=== PATIENT | male | born 1960 | race Caucasian/White ===

== ENCOUNTER 2016-11-07 06:02 | Observation (INO) | payer MEDICARE, OTHER ==
--- NOTE | ~2016-11-07 | DS ---
Discharge Summary [facility] [address] [place]. [address] NAME: DRE FRIED SELVIN : 56 STATUS : DIS Sayra PAT#: [id number] AGE: 56 ADM/REG DATE : 11/07/16 MR#: [id number] REPORT SERV DATE: 11/09/16 DICTATED BY: MINERVA DE ANDA DATE: 11/08/16 REPORT STATUS : Draft TRANSCRIBED BY: MODL DATE: 11/08/16 ADMISSION DATE: 11/07/2016 DISCHARGE DATE: 11/08/2016 REASON FOR ADMISSION: Mild volume overload. HISTORY OF PRESENT ILLNESS: Please refer to my history and physical dated 11/07/2016 for complete details regarding the patient's admission. In brief, the patient was admitted to the Hospitalist Service for volume overload. The patient had an uncomplicated hospital course. He presented with some chest tightness and shortness of breath. He was found to have some volume overload on chest x-ray, and he was given a dose of 60 mg of IV Lasix in the ER with improvement in symptomatology. Hospitalist was asked to admit for further evaluation and management. The patient states that he had not been on a diuretic pill since he was discharged in September from the Cardiology Service. He does not know why, but I suspect it was because of his rising creatinine. He says he typically takes Lasix 40 mg once a day at home, but has been off it for the past month. During admission, the patient was started on aggressive Lasix diuresis. On the following day, he was breathing better and was requesting to go home. His kidney function had improved slightly compared to admission. Of note, the patient had a MARY cardioversion on 10/06/[address] Rivera, which showed a preserved EF. No significant aortic regurgitation. There is some mild mitral regurgitation, trace pulmonic regurgitation, and trace to mild tricuspid regurgitation. His volume overload was likely secondary because he was not on Lasix and CKD stage 3b/4. He is now compensated and is stable for discharge. DISCHARGE DIAGNOSES: Mild volume overload likely secondary to chronic kidney disease, now resolved; history of atrial fibrillation with rapid ventricular response, status post MARY cardioversion, 09/2016, by Dr. Rivera; chronic kidney disease stage 3b/4; clinical chronic obstructive pulmonary disease, ongoing tobacco abuse; coronary artery disease, status post PCI; myocardial infarctions; atypical angina, now resolved. PROCEDURES: Include chest x-ray. DISCHARGE MEDICATIONS: Include Eliquis 5 mg twice a day, aspirin 81 mg daily, Coreg 25 mg twice a day, hydralazine 50 mg three times a day, Dulera 200/5 mcg two puffs twice a day, nitroglycerin p.r.n., Respimat p.r.n., Lasix 40 mg daily. FOLLOWUP: The patient will follow up as outpatient with medical instrument technician and his PCP. ERIC/FIONA Minerva De Anda MD / [id number] Discharge Summary [address] [address] NAME: DRE FRIED SELVIN : 56 STATUS : DIS Sayra PAT#: [id number] AGE: 56 ADM/REG DATE : 11/07/16 MR#: [id number] REPORT SERV DATE: 11/09/16 DICTATED BY: MINERVA DE ANDA DATE: 11/08/16 REPORT STATUS : Draft TRANSCRIBED BY: FIONA DATE: 11/08/16 CC: MD ISIAH Alcantar MD
--- NOTE | ~2016-11-07 | HP ---
History And Physical [place] [id number] [place] [place]. [address] NAME: JOHN FRIED SELVIN : 56 STATUS : ADM Sayra PAT#: [id number] AGE: 56 ADM/REG DATE : 11/07/16 MR#: [id number] REPORT SERV DATE: 11/07/16 DICTATED BY: MINERVA DE ANDA DATE: 11/07/16 REPORT STATUS : Draft TRANSCRIBED BY: MODL DATE: 11/07/16 DATE OF ADMISSION: 11/07/2016 REASON FOR ADMISSION: Mild volume overload secondary to CKD. CHIEF COMPLAINT: "I have been having a chest pain and some shortness of breath." HISTORY OF PRESENT ILLNESS: A 56-year-old white male with a known history of CAD, status post drug-eluting stent to proximal RCA, PTCA to mid RCA. The patient was recently hospitalized on 10/05 for atrial fibrillation with RVR, admitted to the observation unit and had a successful MARY cardioversion by Dr. Rivera. Nephrology had been consulted as his creatinine slightly went up. He thinks he was told to not be taking any diuretics and has not been on diuretics since he was hospitalized. He says that he had chest pain a couple of days ago that could not wake up his sister to take him to the hospital, but it had resolved on its own. He said that he had some chest pain last night, describes it as retrosternal in location, mildly radiating, dull with some shortness of breath periodically. He took a nitroglycerin pill and then had resolved. He has been having some difficulty urinating. In the ER, he was given a dose of 40 mg of IV Lasix and is feeling much better. He is saturating 95% on room air. He is not currently having any chest pain. He has a slightly elevated BNP and a chest x-ray findings consistent with some mild venous congestion. Hospice was asked to admit for further evaluation and management. He does not admit to any orthopnea. Chest pain was a 6/10. He follows up with Dr. Mercado. He is not sure if he sees a water and fire technician or not. REVIEW OF SYSTEMS: As per HPI. Otherwise, ten-point systems were reviewed and are negative. PAST MEDICAL HISTORY: Coronary artery disease, PVD, hypertension, dyslipidemia, history of atrial fibrillation with RVR status post MARY cardioversion, ongoing tobacco abuse, COPD, CKD caused by cholesterol embolization status post catheterization, hyperlipidemia, history of cardiomyopathy, but now with a preserved EF. PAST SURGICAL HISTORY: Sinus surgery, right forearm embolectomy, left transmetatarsal amputation, and left common iliac stent. SOCIAL HISTORY: He lives with his sister. He continues to smoke. He has cut back from two packs to about one-pack per day. He cut back down in January, but he has been smoking for over 45 years. Denies any alcohol or illicit drug use. He is on disability. FAMILY HISTORY: Positive for coronary artery disease. ALLERGIES: CODEINE CAUSES ITCHING ALL OVER. MEDICATIONS: Include Eliquis 5 mg twice a day, aspirin 81 mg daily, Coreg 25 mg twice a day, hydralazine 50 mg three times a day, Combivent p.r.n., and nitroglycerin p.r.n. chest pain. History And Physical [address] [address] NAME: OJHN FRIED SELVIN : 56 STATUS : ADM Sayra PAT#: [id number] AGE: 56 ADM/REG DATE : 11/07/16 MR#: [id number] REPORT SERV DATE: 11/07/16 DICTATED BY: MINERVA DE ANDA DATE: 11/07/16 REPORT STATUS : Draft TRANSCRIBED BY: FIONA DATE: 11/07/16 PHYSICAL EXAMINATION: VITAL SIGNS: Blood pressure is 143/99, saturating 95% on room air. He is afebrile. Pulse is 94. GENERAL: He is in no acute distress. Alert and oriented x3. Very pleasant. HEENT: Normocephalic and atraumatic head. Extraocular muscles are intact. Oropharynx is clear. NECK: Supple. No JVD. CARDIAC: Regular rhythm. No murmurs, rubs, or gallops. There are some periodic ectopic beats. PULMONARY: No wheezing. No rhonchi. There are bibasilar crackles. ABDOMEN: Soft, nontender, nondistended. Positive bowel sounds. EXTREMITIES: Show no clubbing, cyanosis, or edema. NEUROLOGIC: No focal deficits. PSYCHIATRIC: The patient is cooperative. Mood is appropriate. SKIN: Warm and dry. LABORATORY DATA: Labs show a BUN of 44, creatinine 2.44, which is around his baseline. Troponin is 0.05. Hemoglobin 9.7, platelet of 367, and BNP is 401. UA after Goldstein catheter placed is unremarkable. Chest x-ray shows some mild venous congestion interpreted by myself. No significant change from the previous x-ray. IMPRESSION: 1. Mild volume overload secondary to chronic kidney disease, now resolving after one dose of Lasix. 2. History of atrial fibrillation with rapid ventricular response status post transesophageal echocardiography cardioversion by Dr. John Rivera in September 2016. 3. Chronic kidney disease, stage 3B/4. 4. Chronic obstructive pulmonary disease.. 5. Ongoing tobacco abuse. 6. Coronary artery disease status post percutaneous coronary intervention and myocardial infarction. 7. Atypical angina. The plan is to continue Lasix diuresis with 40 mg IV q.12 hours. We will monitor his creatinine pretty closely, resume his home medicines, check one more set of troponin. He is on possibility for discharge tomorrow if his symptoms continue to improve and if his kidney functions are at baseline. ERIC/FIONA Minerva De Anda MD / [id number] History And Physical [address] [address] NAME: JOHN FRIED SELVIN : 56 STATUS : ADM Sayra PAT#: [id number] AGE: 56 ADM/REG DATE : 11/07/16 MR#: [id number] REPORT SERV DATE: 11/07/16 DICTATED BY: MINERVA DE ANDA DATE: 11/07/16 REPORT STATUS : Draft TRANSCRIBED BY: MODLisandro DATE: 11/07/16 CC: MD MERE Alcantar PAUL E John Carter Hemphill, MD
[2016-11-07 03:34] LABS: BASOPHILS 0.5 %; BASOPHILS ABSOLUTE 0.05 10/3/uL (0.0-0.16); EOSINOPHILS ABSOLUTE 0.29 10/3/uL (0.0-0.53); HEMATOCRIT 29.8 % (40.0-51.0); HEMOGLOBIN 9.7 g/dL (13.6-17.8); IMMATURE GRANULOCYTES 0.5 %; IMMATURE GRANULOCYTES ABSOLUTE 0.05 10/3/uL (0.0-0.11); LYMPHOCYTES 18.8 %; LYMPHOCYTES ABSOLUTE 1.79 10/3/uL (0.67-4.30); MEAN CORPUS HGB CONC 32.6 g/dL (32.0-36.0); MEAN CORPUSCULAR HEMOGLOB 24.2 pg (26.0-34.0); MEAN PLATELET VOLUME 8.2 fL (9.2-13.0); MONOCYTES 5.7 %; MONOCYTES ABSOLUTE 0.54 10/3/uL (0.21-1.20); NEUTROPHILS 71.5 %; NEUTROPHILS ABSOLUTE 6.82 10/3/uL (2.02-8.40); PLATELET COUNT 367 10/3/uL (150-400); RBC DISTRIBUTION WIDTH 14.4 % (12.0-16.0); RED CELL COUNT 4.01 10/6/uL (4.7-6.1); WHITE BLOOD CELLS 9.5 10/3/uL (4.5-10.5)
[2016-11-07 03:37] LABS: MANUAL DIFF NO %; MEAN CORPUSCULAR VOLUME 74.3 fL (80-100)
[2016-11-07 03:45] LABS: INTERNATIONAL NORMAL RATI 1.1 UNITS (-); PARTIAL THROMBO TIME 30.8 SEC (22.5-37.2); PROTIME (NOT ORD) 14.2 SEC (12.0-14.5)
[2016-11-07 03:50] LABS: CALCIUM, SERUM 8.7 MG/DL (8.5-10.4); CHLORIDE, SERUM 98 MMOL/L (96-112); CO2 (CARBON DIOXIDE) 27 MMOL/L (24-34); CREATININE 2.44 MG/DL (0.70-1.30); GFR AFRICAN AMERICAN 33 ML/MIN (>=60); GFR NON AFRICAN AMERICAN 28 ML/MIN (>=60); GLUCOSE, SERUM 106 MG/DL (60-99); POTASSIUM, SERUM 3.7 MMOL/L (3.5-5.3); SODIUM, SERUM 138 MMOL/L (135-148)
[2016-11-07 03:51] LABS: BUN (BLOOD UREA NITROGEN) 44 MG/DL (6-23); CHEST PAIN PROFILE TAT 0 Hrs 21 Mins; TROPONIN I 0.05 NG/ML (<0.05)
[2016-11-07 04:00] LABS: PLATELET ESTIMATE ADQ (ADEQUATE)
[2016-11-07 04:03] LABS: HYPOCHROMIA 1+ (3-10/OIF) (0-2/OIF); POLYCHROMASIA 1+ (2-5/OIF) (0-1/OIF)
[2016-11-07 05:55] LABS: ASCORBIC ACID (UR NOT ORDER) NEG (NEG); BILIRUBIN, URINE NEGATIVE (NEG); ER URINALYSIS TAT 0 Hrs 00 Mins; KETONE, URINE NEGATIVE (NEG); LEUKOCYTE ESTERASE(NOT OR NEG (NEG); NITRITE (URINE) NEG (NEG); WBC (NOT ORDERED) (RFLEX) 1 (0-5)
[~2016-11-07 06:02] MED LIST: *UNABLE1; ACET500CAP PO; ADVAIR250 INH; ANADS PO; APRES10B PO; APRES50 PO; ASA5GR PO; ASAB PO; ASABAYER PO; C5 PO; CARDCD180 PO; CHANTIX1 PO; COMBIVENT INH; COMBIVENT RESPIM4 GM INH; COREG; COREG12 PO; COREG25 PO; COREG6 PO; DILTIAZEM; EFFIENT10 PO; ELIQUIS; ELIQUIS 5 MG TAB5 MG PO; HALF81 PO; L20 PO; L40 PO; LIPITOR; LIPITOR20 PO; LIPITOR40 PO; LOP50 PO; MOBIC15 MG PO; NEUR300 PO; NITROSTAT0.4 MG SL; NORV10 PO; PCET PO; PERCOCET1 TA4 PO; PLAVIX; PLAVIX PO; PR12.5 PO; PR25 PO; PRILO PO; PRILOSEC OTC20 MG PO; PRILOSEC40 MG PO; PRIN10 PO; PRIN20 PO; PROTONIX PO; PT DOES NOT RECALL; SYMBICORT 160/41 INH INH; ZANTAC150 MG PO; ZESTRIL20 MG PO; [UNRECOGNIZED DRUG - REMARK] IM
[2016-11-08 02:48] LABS: CALCIUM, SERUM 8.7 MG/DL (8.5-10.4); CHLORIDE, SERUM 96 MMOL/L (96-112); CO2 (CARBON DIOXIDE) 27 MMOL/L (24-34); CREATININE 2.35 MG/DL (0.70-1.30); GFR AFRICAN AMERICAN 34 ML/MIN (>=60); GFR NON AFRICAN AMERICAN 29 ML/MIN (>=60); SODIUM, SERUM 135 MMOL/L (135-148)
[2016-11-08 02:51] LABS: BUN (BLOOD UREA NITROGEN) 49 MG/DL (6-23); GLUCOSE, SERUM 135 MG/DL (60-99); TROPONIN I 0.07 NG/ML (<0.05)
[2016-11-08] MEDS ORDERED: L40 PO (15:12)
[2016-11-08] MEDS ORDERED: DULERA 200 MCG/13 GM INH (15:12)
== END 2016-11-08 17:00 | disposition home or self-care (01) ==
LOC: ER 06:02 → 7NO 07:42
PROVIDERS: Hospitalist; Internal Medicine
DX: E87.70 Fluid overload, unspecified (principal); J44.9 Chronic obstructive pulmonary disease, unspecified; I25.118 Atherosclerotic heart disease of native coronary artery with other forms of angina pectoris; I12.9 Hypertensive chronic kidney disease with stage 1 through stage 4 chronic kidney disease, or unspecified chronic kidney disease; N18.3 Chronic kidney disease, stage 3 (moderate); E78.5 Hyperlipidemia, unspecified; F17.210 Nicotine dependence, cigarettes, uncomplicated; E78.00 Pure hypercholesterolemia, unspecified; J45.909 Unspecified asthma, uncomplicated; M19.90 Unspecified osteoarthritis, unspecified site; F32.9 Major depressive disorder, single episode, unspecified; Z98.890 Other specified postprocedural states; Z82.49 Family history of ischemic heart disease and other diseases of the circulatory system; Z88.5 Allergy status to narcotic agent; Z79.82 Long term (current) use of aspirin; Z79.899 Other long term (current) drug therapy; Z90.49 Acquired absence of other specified parts of digestive tract
CPT/HCPCS: 71010; 80048; 81001; 83735; 83880; 84100; 84484; 85025; 85610; 85730; 93005; 96374; 96375; 96376; 99285; A9270-GY; G0378; J2405

== ENCOUNTER 2016-11-27 19:52 | Inpatient (IN) | payer MEDICARE, OTHER ==
--- NOTE | ~2016-11-27 | CN ---
Consultation Report [facility] [address] [place]. [address] NAME: DRE AQUINO SELVIN : 56 STATUS : ADM Sayra PAT#: [id number] AGE: 56 ADM/REG DATE : 11/27/16 MR#: [id number] REPORT SERV DATE: 11/28/16 DICTATED BY: TIAGO DICKENS DATE: 11/28/16 REPORT STATUS : Draft TRANSCRIBED BY: MODL DATE: 11/28/16 NEPHROLOGY CONSULT DATE OF CONSULTATION: 11/28/2016 REASON FOR CONSULT: Acute kidney injury on CKD and oliguria. HISTORY OF PRESENT ILLNESS: Mr. Aquino is a 56-year-old white male with chronic kidney disease, whose baseline creatinine tends to be 1.9 to 2.1. He has significant coronary disease with multiple previous interventions and has suffered cholesterol embolization previously resulting in CKD and left TMA. He was admitted overnight with AFib and rapid ventricular response. He was placed on Cardizem infusion on presentation. He developed bradycardia and hypotension and was transferred to the CCU earlier today. He was most recently admitted in September with AFib and RVR, and underwent cardioversion at that time. His creatinine during that hospital stay fluctuated between 2.2 and 2.6. However, on presentation last night his creatinine was 1.9. During this admission, chest x-ray has shown a trace right pleural effusion. CT without contrast showed cerebral atrophy, but no acute neuro changes. Kidneys were not obstructed and he did have a 4 x 4.2 cm abdominal aortic aneurysm. He has developed oligoanuria over the last several hours. Creatinine repeat today is 2.4 with potassium 4.5. Bedside echo showed EF down to 30% from 50% in September. Decision was made not to take him urgently to the labor relations officer today. PAST MEDICAL HISTORY: 1. CKD, baseline creatinine around 2.0. 2. COPD with ongoing tobacco abuse. 3. Atherosclerotic cardiovascular disease with PCI. 4. EF 30% by bedside echo today. 5. PAD with left iliac stent and left transmetatarsal amputation. 6. Hyperlipidemia. 7. Atrial fibrillation, status post cardioversion 09/2016. MEDICATIONS ON ADMISSION: Eliquis 5 mg b.i.d., aspirin, Coreg 25 mg b.i.d., hydralazine 50 mg t.i.d., Combivent inhaler, Prilosec 40 mg daily. FAMILY HISTORY: No ESRD. Sister has chronic kidney disease. SOCIAL HISTORY: He is . Lives in [place]. Smokes a pack of cigarettes per day and is disabled. REVIEW OF SYSTEMS: Please see HPI for pertinent details. Consultation Report [facility] [address] [place]. [address] NAME: DRE AQUINO SELVIN : 56 STATUS : ADM Sayra PAT#: [id number] AGE: 56 ADM/REG DATE : 11/27/16 MR#: [id number] REPORT SERV DATE: 11/28/16 DICTATED BY: TIAGO DICKENS DATE: 11/28/16 REPORT STATUS : Draft TRANSCRIBED BY: FIONA DATE: 11/28/16 PHYSICAL EXAMINATION: VITAL SIGNS: Temperature 98.4, pulse 74, respirations 16, blood pressure 91/59. Intake and output are not recorded. GENERAL: He is in no distress. He is a pleasant white male, who appears chronically ill, older than stated age. HEENT: Sclerae without icterus. Conjunctivae not injected. Oropharynx is clear. NECK: JVD 8 to 10 cm. LUNGS: He has diffuse bilateral rhonchi without dyspnea or tachypnea on 3 L per nasal cannula. CARDIAC: Heart rate is controlled. Rhythm is irregular consistent with AFib on the monitor. 2/6 murmur, no rub. ABDOMEN: Soft, nontender, nondistended. Bowel sounds present throughout without rebound, guarding, peritoneal signs. EXTREMITIES: Show no edema. SKIN: Shows no rash or livedo reticularis. Very minimal urine output in the Goldstein catheter. He has had a left transmetatarsal amputation. NEURO: Grossly nonfocal. Left upper extremity PICC in place. MUSCULOSKELETAL: Shows no active tenosynovitis or gout. LABORATORY DATA: Sodium 136, potassium 4.5, bicarb 21, BUN 38, creatinine 2.4, GFR 29 mL/minute. Calcium 8.6, magnesium 2.1. Phosphorus 4.5, albumin 3.4. Troponin 0.06. LFTs normal. Procalcitonin 0.21. BNP 538. White count 8300, hemoglobin 8.8, platelets 322,000. INR 1.3. Eosinophils not present. ASSESSMENT AND PLAN: Mr. Aquino has chronic kidney disease, baseline creatinine approximately 2.0, has now developed oligoanuric acute kidney injury in the setting of bradycardia, hypotension, ejection fraction 30%, chronic obstructive pulmonary disease with ongoing tobacco abuse, peripheral atrial disease, and atrial fibrillation. Almost certainly he has developed acute kidney injury related to acute tubular necrosis from renal hypoperfusion due to a combination of hypotension and bradycardia. Gentle diuresis has been planned. No MOON inhibitor or ARB. No plans for urgent cardiac catheterization today. He is a very high risk patient for developing renal failure requiring dialysis with contrast exposure. Watch labs. Supportive care. Avoid nephrotoxic medications. We will follow closely with you. Family updated in room and agree with treatment plans. DALTON/FIONA Tiago Dickens M.D. / [id number] Consultation Report [address] [address] NAME: DRE AQUINO SELVIN : 56 STATUS : ADM Sayra PAT#: [id number] AGE: 56 ADM/REG DATE : 11/27/16 MR#: [id number] REPORT SERV DATE: 11/28/16 DICTATED BY: TIAGO DICKENS DATE: 11/28/16 REPORT STATUS : Draft TRANSCRIBED BY: FIONA DATE: 11/28/16 CC: Saeid Myers Jr, MD
--- NOTE | ~2016-11-27 | CN ---
Consultation Report [facility] [address] [place]. [address] NAME: DRE AQUINO SELVIN : 56 STATUS : ADM Sayra PAT#: [id number] AGE: 56 ADM/REG DATE : 11/27/16 MR#: [id number] REPORT SERV DATE: 11/28/16 DICTATED BY: PEDRO KEATING DATE: 11/28/16 REPORT STATUS : Draft TRANSCRIBED BY: MODL DATE: 11/28/16 CARDIOLOGY CONSULT DATE OF CONSULTATION: 11/28/2016 REQUESTING PHYSICIAN: Dr. Reyes, Critical Care Medicine. PATIENT'S PRIMARY LOAN ADMINISTRATOR: Dr. Mercado. CONSULTATION REASON: Atrial fibrillation with rapid ventricular response and hemodynamic instability. HISTORY OF PRESENT ILLNESS: Mr. Aquino is a 56-year-old male with multiple medical problems including polyvascular disease, paroxysmal atrial fibrillation and a longstanding history of medication nonadherence with multiple admissions already this year, who presented to the ER with recurrent symptomatic atrial fibrillation with rapid ventricular response. He does have ongoing tobacco use as well. He was admitted to the hospitalist service and placed on a Cardizem drip. Shortly thereafter, he became bradycardic and hypotensive with altered mental status. He was seen by Critical Care Service and given IV calcium and IV atropine. Hemodynamics improved with a heart rate of 70 and a blood pressure of 90/60. He still has some confusion following IV atropine. He is uncomfortable appearing and complains of "I hurt all over." He also has some vague dyspnea and nausea. ECG shows atrial fibrillation with a controlled ventricular response in the 60s, old anterior infarct, and QT prolongation with no acute ST changes. Troponin has been stable at 0.03, 0.06, and repeat at 0.06. He has had no recent syncope, orthopnea, or edema. REVIEW OF SYSTEMS: Pertinent positives and negatives are as outlined above. Other pertinent negatives include, no recent changes in appetite or weight. No recent fevers or chills. He has chronic cough which is not changed and he has had no sputum production. PAST MEDICAL HISTORY: 1. CAD, status post multiple infarcts and PCIs. Previously preserved EF, 55%. 2. Atrial fibrillation, paroxysmal. 3. Peripheral atrial disease, status post left partial foot amputation. 4. Abdominal aortic aneurysm, 4 cm. 5. Chronic kidney disease, stage 3-4. 6. Anemia of chronic disease. 7. Hypertension. 8. Hyperlipidemia. 9. Tobacco use, ongoing. 10.COPD. 11.Medication noncompliance. Consultation Report [place] [address] [place]. [address] NAME: DRE AQUINO SELVIN : 56 STATUS : ADM Sayra PAT#: [id number] AGE: 56 ADM/REG DATE : 11/27/16 MR#: [id number] REPORT SERV DATE: 11/28/16 DICTATED BY: PEDRO KEATING DATE: 11/28/16 REPORT STATUS : Draft TRANSCRIBED BY: FIONA DATE: 11/28/16 CURRENT HOME MEDICATIONS: Listed are: 1. Carvedilol 25 mg twice daily. 2. Hydralazine 50 mg three times daily. 3. Nitroglycerin sublingual p.r.n. 4. Aspirin 81 mg daily. 5. Eliquis 5 mg twice daily. 6. Combivent inhaler. 7. Prilosec p.r.n. ALLERGIES: INCLUDE, CODEINE WHICH CAUSES "ITCHING ALL OVER." REVIEW OF SYSTEMS: The patient is disabled. He has ongoing tobacco use. He does not consume alcohol or use illegal drugs. FAMILY HISTORY: Significant for CAD. PHYSICAL EXAMINATION: VITALS: Temperature is 98.4, pulse is 65, respirations 16, and blood pressure is 90/60. GENERAL: Ill-appearing male who looks uncomfortable, but is in otherwise no acute distress. HEENT: Sclerae anicteric, mucous membranes moist and without lesions. NECK: No jugular venous distention. No hepatojugular reflux, carotid upstrokes 2+ and symmetric. There are no carotid or subclavian bruit. LUNGS: Moderately decreased breath sounds throughout with no wheezes or crackles. CARDIOVASCULAR: Irregularly irregular with distant S1 and S2. No audible S3 or S4. There is a soft I/ faint holosystolic murmur heard in the axilla without radiation. ABDOMEN: Soft and nontender. Bowel sounds positive and normoactive. There is no rebound or guarding. PULSES: Radial and dorsalis pedis pulses are 1+ and symmetric. EXTREMITIES: Slightly cool and without edema. SKIN: No clubbing or cyanosis. No rashes or lesions. ACCESSORY DATA: Creatinine is 2.3, BUN 14, otherwise unremarkable electrolytes. White blood cell count on arrival 12, hematocrit 27, platelet count 360. Troponin essentially unchanged at 0.03 and then 0.06 on two occasions. Admission BNP 530, procalcitonin 0.21. Stat echocardiogram is pending. Repeat ECG is unchanged from previous description with atrial fibrillation with controlled response, QT prolongation and no ST changes. IMPRESSION: 1. Atrial fibrillation with rapid ventricular response. 2. Atypical chest pain. 3. Coronary artery disease, status post old infarct and multiple PCIs. 4. Abdominal aortic aneurysm. 5. Peripheral atrial disease. 6. Chronic kidney disease, stage 3-4. Consultation Report [place] [id number] [place]. [address] NAME: DRE AQUINO SELVIN : 56 STATUS : ADM Sayra PAT#: [id number] AGE: 56 ADM/REG DATE : 11/27/16 MR#: [id number] REPORT SERV DATE: 11/28/16 DICTATED BY: PEDRO KEATING DATE: 11/28/16 REPORT STATUS : Draft TRANSCRIBED BY: MODL DATE: 11/28/16 7. Anemia of chronic disease. 8. Hypertension. 9. Hyperlipidemia. 10.Tobacco use, ongoing. 11.Chronic obstructive pulmonary disease. 12.Medication nonadherence. PLAN: Etiology of Mr. Aquino's occurrence of diffuse discomfort with dyspnea and nausea is unclear. Differential is broad including a possible acute coronary syndrome, although unchanged EKG and troponin make this less likely. He has not had Eliquis, so we will start an IV heparin drip and continue aspirin with serial troponins. I will perform a stat echocardiogram to reassess cardiac function. If his LVEF has declined significantly with more recent development of cardiomyopathy, he may need more urgent cardiac catheterization. This was discussed with his primary wallpaper printer, Dr. Mercado who is stoneworking sander for Interventional Cardiology today. With atrial fibrillation and medication nonadherence, he could have had an embolic event. This was discussed with Critical Care. CT of the abdomen was unremarkable except for a 4 cm AAA. We will check a lactate. Given his recent hemodynamic instability, other medications are currently on hold except for heparin which is now ordered, and aspirin. Questionable coronary angiography pending stat echo. We will follow with you. 40 minutes were spent evaluating the patient, reviewing data, and developing plan. AEA/MODL Pedro Keating M.D. / [id number] CC: Saeid Myesr Jr, MD
--- NOTE | ~2016-11-27 | HP ---
History And Physical [place] [id number] [place] [place]. [address] NAME: DRE FRIED SELVIN : 56 STATUS : ADM IN [facility]#: [id number] AGE: 56 ADM/REG DATE : 11/28/16 MR#: [id number] REPORT SERV DATE: 11/29/16 DICTATED BY: ARCELIA VIRGEN DATE: 11/27/16 REPORT STATUS : Draft TRANSCRIBED BY: MODL DATE: 11/27/16 DATE OF ADMISSION: 11/27/2016 CHIEF COMPLAINT: Shortness of breath. HISTORY OF PRESENT ILLNESS: The patient is a 56-year-old male, with past medical history of AFib status post cardioversion by Dr. Rivera, follows with Dr. Mercado in clinic, additionally CKD stage III/D, chronic tobacco use with history of left toe ischemia, COPD who presents after having progressive shortness of breath over the last two to three weeks, has been continuous constant, moderate, severe. No pain or radiating symptoms. Does have shortness of breath. No fevers, chills, nausea, vomiting. Has had mild decreased appetite, but has also had noted increased swelling, accidental urine incontinence overflow. Symptoms worsened with ambulating, relieved by rest. Symptoms are currently present. The patient also was noted to have fast heart rate and was back in AFib pattern on arrival in emergency room along with mild volume overload. Still continues to smoke at least a pack per day. REVIEW OF SYSTEMS: GENERAL: No chills or fever. EYES: No eye pain or visual changes. ENT: No sore throat and congestion, has had chronic left neck swelling for years. NEURO: No headache or confusion. SKIN: No bruising or rash. RESPIRATORY: Positive shortness of breath and dyspnea on exertion. CV: Fast heart rate, but no chest pain. GI: No nausea, vomiting. : Mild incontinence, but no hematuria. MUSCULOSKELETAL: Chronic myalgias and lower extremity swelling. ENDO: No fatigue or polyuria. HEME: No bleeding or bruising. IMMUNOLOGIC: No rhinorrhea. PSYCH: No anxiety or confusion. PAST MEDICAL HISTORY: Coronary artery disease, PVD, hypertension, dyslipidemia, AFib with RVR, status post MARY conversion, continued one-pack per day tobacco use for many years, COPD, CKD, secondary to cholesterol embolism, status post catheterization, hyperlipidemia, history of cardiomyopathy, but now preserved EF. SURGICAL HISTORY: Sinus, right forearm embolectomy, left transmetatarsal amputation, left common iliac stent. SOCIAL HISTORY: Lives with sister. Smokes at least a pack per day, but was previously two- pack per day x45 years. No alcohol or illicits. On disability, . FAMILY HISTORY: Coronary artery disease. History And Physical [address] [address] NAME: DRE FRIED SELVIN : 56 STATUS : ADM IN [facility]#: [id number] AGE: 56 ADM/REG DATE : 11/28/16 MR#: [id number] REPORT SERV DATE: 11/29/16 DICTATED BY: ARCELIA VIRGEN DATE: 11/27/16 REPORT STATUS : Draft TRANSCRIBED BY: FIONA DATE: 11/27/16 ALLERGIES: CODEINE. MEDICATIONS: Eliquis, aspirin, Coreg, hydralazine, Combivent, Nitrostat, Prilosec. EKG: Heart rate of 129 with AFib, PVCs, QTc of 121. PHYSICAL EXAMINATION: VITAL SIGNS: Patient's blood pressure 142/92, pulse rate anywhere from 125 to 130s, respiratory rate 22, O2 saturations 96% on room air. GENERAL: At rest, no acute distress. Calm, elderly. EYES: Scleral icterus. EOMI. ENT: Moist mucous membranes. Large montiel. Does have left mild enlarged mass, which patient reports that he has had this for years and has also been followed closely with his PCP. RESPIRATION: Decreased lower lung diaz. No end-expiratory wheeze currently. CV: Irregularly irregular, AFib pattern with 1:1 beat pulse ratio. Bilateral edema. GI: Soft, nontender, nondistended. Bowel sounds positive. : Deferred. MUSCULOSKELETAL: Moves all extremities x4. Does have partial transmetatarsal amputation left foot. Still warm. Site clean and dry. HEME: No bleeding or bruising. NEURO: Alert and oriented. Moves all extremities x4. PSYCH: Appropriate mood and affect. LABS: BNP 537.6, sodium 135, potassium 3.2, chloride 95, bicarb 26, BUN and creatinine 38 and 1.92, glucose 113, calcium 8.8, magnesium 2.0. Troponin 0.03. LFTs within normal limits. Bilirubin 0.7. Total WBC count 12.1, H and H are 9.2 and 28.4, MCV 68.4, platelets 416, INR 1.3. ASSESSMENT AND PLAN: 1. Atrial fibrillation with rapid ventricular response. 2. Dyspnea. 3. Chronic kidney disease stage IIIB/IV. 4. Microcytic anemia. 5. Hypokalemia. 6. Elevated BNP with EF of 50% to 55%. 7. Left toe ischemia history. 8. Chronic obstructive pulmonary disease. 9. Insomnia. 10.Urinary retention. PLAN: 1. For atrial fibrillation with RVR. Optimize electrolytes with hypokalemia. Placed on the Cardizem drip in emergency room and cardioverted in past. Likely decompensation secondary to pulmonary. 2. COPD, continued smoking use and possibly undiagnosed obstructive sleep apnea as the patient does have a notable family history of SHILPI, may require outpatient sleep study at some point. Additionally has slight increased volume overload which could be History And Physical [address] [address] NAME: FARIHADREKathya MONTALVO : 56 STATUS : ADM IN PAT#: [id number] AGE: 56 ADM/REG DATE : 11/28/16 MR#: [id number] REPORT SERV DATE: 11/29/16 DICTATED BY: ARCELIA VIRGEN DATE: 11/27/16 REPORT STATUS : Draft TRANSCRIBED BY: FIONA DATE: 11/27/16 combination of renal, COPD, and decompensated AFib at this time. 3. Dyspnea, diuretics with elevated BNP and treat:. a. AFib. 4. CKD. Creatinine appears slightly improved from prior. 5. Microcytic anemia, on Eliquis. We will check iron studies, FOBT, reticulocyte count, likely secondary to CKD status. Consider followup colonoscopy at discharge for routine. We will defer to PCP. 6. Hypokalemia, replace. 7. Elevated BNP, EF 50% to 55% and does have increased volume at this time. Possible secondary to decompensated AFib at this time. We will monitor. 8. Left toe ischemia. No signs of acute decompensation in lower extremities. 9. COPD. O2, DuoNeb, needs to stop smoking, but has decreased from two pack down to one pack per day. Recommending outpatient sleep study, discussed with the patient and family. O2 ambulating trial prior to discharge. 10.Insomnia, p.r.n.s. 11.Urinary retention, trial tamsulosin. All questions answered with patient's family at bedside. The patient is eager to return home as soon as possible. DDN/MODL Arcelia Virgen MD / [id number] CC: Saeid Myers Jr, MD
[~2016-11-27 19:52] MED LIST changes: +DULERA 200 MCG/13 GM INH
[2016-11-27 20:46] LABS: BASOPHILS 0.4 %; BASOPHILS ABSOLUTE 0.05 10/3/uL (0.0-0.16); EOSINOPHILS 1.7 %; EOSINOPHILS ABSOLUTE 0.21 10/3/uL (0.0-0.53); ER CBC TAT 0 Hrs 07 Mins; HEMATOCRIT 28.4 % (40.0-51.0); HEMOGLOBIN 9.2 g/dL (13.6-17.8); IMMATURE GRANULOCYTES 0.3 %; IMMATURE GRANULOCYTES ABSOLUTE 0.04 10/3/uL (0.0-0.11); LYMPHOCYTES 16.2 %; LYMPHOCYTES ABSOLUTE 1.97 10/3/uL (0.67-4.30); MANUAL DIFF NO %; MEAN CORPUS HGB CONC 32.4 g/dL (32.0-36.0); MEAN CORPUSCULAR HEMOGLOB 22.1 pg (26.0-34.0); MEAN CORPUSCULAR VOLUME 68.3 fL (80-100); MEAN PLATELET VOLUME 9.3 fL (9.2-13.0); MONOCYTES 5.7 %; MONOCYTES ABSOLUTE 0.69 10/3/uL (0.21-1.20); NEUTROPHILS 75.7 %; NEUTROPHILS ABSOLUTE 9.17 10/3/uL (2.02-8.40); PLATELET COUNT 416 10/3/uL (150-400); RBC DISTRIBUTION WIDTH 15.7 % (12.0-16.0); RED CELL COUNT 4.16 10/6/uL (4.7-6.1); WHITE BLOOD CELLS 12.1 10/3/uL (4.5-10.5)
[2016-11-27 20:56] LABS: INTERNATIONAL NORMAL RATI 1.3 UNITS (-); PROTIME (NOT ORD) 15.6 SEC (12.0-14.5)
[2016-11-27 20:57] LABS: PARTIAL THROMBO TIME 34.6 SEC (22.5-37.2)
[2016-11-27] MEDS ORDERED: PRILOSEC40 MG PO (20:58)
[2016-11-27 21:00] LABS: ALBUMIN 3.4 G/DL (3.5-5.0); DIRECT BILIRUBIN 0.1 MG/DL (0.0-0.4); INDIRECT BILIRUBIN(NOT ORDER) 0.6 MG/DL (0.1-0.9); TOTAL BILIRUBIN 0.7 MG/DL (0-1.2); TOTAL PROTEIN 7.1 G/DL (6.0-8.5)
[2016-11-27 21:01] LABS: CALCIUM, SERUM 8.8 MG/DL (8.5-10.4); CHEST PAIN PROFILE TAT 0 Hrs 16 Mins; CHLORIDE, SERUM 95 MMOL/L (96-112); CO2 (CARBON DIOXIDE) 26 MMOL/L (24-34); CREATININE 1.92 MG/DL (0.70-1.30); GFR AFRICAN AMERICAN 44 ML/MIN (>=60); GFR NON AFRICAN AMERICAN 38 ML/MIN (>=60); GLUCOSE, SERUM 113 MG/DL (60-99); POTASSIUM, SERUM 3.2 MMOL/L (3.5-5.3); SODIUM, SERUM 135 MMOL/L (135-148); TROPONIN I 0.03 NG/ML (<0.05)
[2016-11-27 21:04] LABS: BUN (BLOOD UREA NITROGEN) 38 MG/DL (6-23)
[2016-11-28 05:41] LABS: BASOPHILS 0.7 %; BASOPHILS ABSOLUTE 0.06 10/3/uL (0.0-0.16); EOSINOPHILS ABSOLUTE 0.27 10/3/uL (0.0-0.53); HEMATOCRIT 26.6 % (40.0-51.0); HEMOGLOBIN 8.6 g/dL (13.6-17.8); IMMATURE GRANULOCYTES 0.4 %; IMMATURE GRANULOCYTES ABSOLUTE 0.04 10/3/uL (0.0-0.11); LYMPHOCYTES 18.1 %; LYMPHOCYTES ABSOLUTE 1.65 10/3/uL (0.67-4.30); MEAN CORPUS HGB CONC 32.3 g/dL (32.0-36.0); MEAN CORPUSCULAR HEMOGLOB 22.2 pg (26.0-34.0); MEAN CORPUSCULAR VOLUME 68.6 fL (80-100); MEAN PLATELET VOLUME 9.2 fL (9.2-13.0); MONOCYTES 6.6 %; NEUTROPHILS 71.2 %; NEUTROPHILS ABSOLUTE 6.48 10/3/uL (2.02-8.40); PLATELET COUNT 363 10/3/uL (150-400); RBC DISTRIBUTION WIDTH 15.7 % (12.0-16.0); RED CELL COUNT 3.88 10/6/uL (4.7-6.1); RETICULOCYTE COUNT 2.4 % (0.5-2.5); WHITE BLOOD CELLS 9.1 10/3/uL (4.5-10.5)
[2016-11-28 05:47] LABS: MANUAL DIFF NO %
[2016-11-28 05:57] LABS: BUN (BLOOD UREA NITROGEN) 38 MG/DL (6-23); CALCIUM, SERUM 8.6 MG/DL (8.5-10.4); CHLORIDE, SERUM 97 MMOL/L (96-112); CO2 (CARBON DIOXIDE) 25 MMOL/L (24-34); CREATININE 2.19 MG/DL (0.70-1.30); FERRITIN 17 NG/ML (26-388); GFR AFRICAN AMERICAN 37 ML/MIN (>=60); GFR NON AFRICAN AMERICAN 32 ML/MIN (>=60); GLUCOSE, SERUM 111 MG/DL (60-99); IRON BINDING CAPACITY 436 MCG/DL (250-450); IRON, SERUM 20 MCG/DL (35-150); PHOSPHORUS, SERUM 4.5 MG/DL (2.5-4.5); POTASSIUM, SERUM 3.8 MMOL/L (3.5-5.3); SODIUM, SERUM 135 MMOL/L (135-148)
[2016-11-28 05:58] LABS: TROPONIN I 0.06 NG/ML (<0.05)
[2016-11-28 06:09] LABS: HYPOCHROMIA 1+ (3-10/OIF) (0-2/OIF); MICROCYTES 1+ (5-10/OIF) (0-5/OIF); PLATELET ESTIMATE ADQ (ADEQUATE)
[2016-11-28 06:22] LABS: ALLENS TEST Pos; BE (BASE EXCESS) -2.7 MEQ/L (0 +/- 2.5); DEVICE NC; HCO3 (ACTUAL BICARBONATE) 22.6 MEQ/L (23-27); HEMOBLOGIN CONTENT 9.6 G/DL (14-18); INSTRUMENT SERIAL # 35151; METHEMOGLOBIN 0.5 % (0-3); O2 CONTENT 12.2 VOL% (18-24); OPERATOR ID 13861; PCO2 (CO2 TENSION) 41 MMHG (35-45); PO2 (O2 TENSION) 74 MMHG (79-93); SAMPLE Arterial; pH 7.36 (7.37-7.43)
[2016-11-28 06:25] LABS: PROCALCITONIN 0.21 ng/mL (<0.5)
[2016-11-28 08:20] LABS: BASOPHILS 0.4 %; BASOPHILS ABSOLUTE 0.03 10/3/uL (0.0-0.16); EOSINOPHILS ABSOLUTE 0.08 10/3/uL (0.0-0.53); HEMATOCRIT 27.4 % (40.0-51.0); HEMOGLOBIN 8.8 g/dL (13.6-17.8); IMMATURE GRANULOCYTES 1.1 %; IMMATURE GRANULOCYTES ABSOLUTE 0.09 10/3/uL (0.0-0.11); LYMPHOCYTES 13.7 %; LYMPHOCYTES ABSOLUTE 1.14 10/3/uL (0.67-4.30); MEAN CORPUS HGB CONC 32.1 g/dL (32.0-36.0); MEAN CORPUSCULAR HEMOGLOB 22.4 pg (26.0-34.0); MEAN CORPUSCULAR VOLUME 69.7 fL (80-100); MEAN PLATELET VOLUME 9.2 fL (9.2-13.0); MONOCYTES 6.2 %; MONOCYTES ABSOLUTE 0.52 10/3/uL (0.21-1.20); NEUTROPHILS 77.6 %; NEUTROPHILS ABSOLUTE 6.47 10/3/uL (2.02-8.40); PLATELET COUNT 322 10/3/uL (150-400); RBC DISTRIBUTION WIDTH 15.5 % (12.0-16.0); RED CELL COUNT 3.93 10/6/uL (4.7-6.1); WHITE BLOOD CELLS 8.3 10/3/uL (4.5-10.5)
[2016-11-28 08:22] LABS: MANUAL DIFF NO %
[2016-11-28 08:29] LABS: BUN (BLOOD UREA NITROGEN) 38 MG/DL (6-23); CALCIUM, SERUM 8.6 MG/DL (8.5-10.4); CHLORIDE, SERUM 101 MMOL/L (96-112); CO2 (CARBON DIOXIDE) 21 MMOL/L (24-34); CREATININE 2.36 MG/DL (0.70-1.30); GFR AFRICAN AMERICAN 34 ML/MIN (>=60); GFR NON AFRICAN AMERICAN 29 ML/MIN (>=60); GLUCOSE, SERUM 113 MG/DL (60-99); POTASSIUM, SERUM 4.5 MMOL/L (3.5-5.3); SODIUM, SERUM 136 MMOL/L (135-148)
[2016-11-28 08:46] LABS: HYPOCHROMIA 1+ (3-10/OIF) (0-2/OIF); MICROCYTES 1+ (5-10/OIF) (0-5/OIF); PLATELET ESTIMATE ADQ (ADEQUATE)
[2016-11-28 14:48] LABS: ALBUMIN 3.1 G/DL (3.5-5.0); CALCIUM, SERUM 8.5 MG/DL (8.5-10.4); CHLORIDE, SERUM 99 MMOL/L (96-112); CO2 (CARBON DIOXIDE) 22 MMOL/L (24-34); CREATININE 2.81 MG/DL (0.70-1.30); GFR AFRICAN AMERICAN 27 ML/MIN (>=60); GFR NON AFRICAN AMERICAN 24 ML/MIN (>=60); GLUCOSE, SERUM 124 MG/DL (60-99); PHOSPHORUS, SERUM 5.2 MG/DL (2.5-4.5); POTASSIUM, SERUM 5.2 MMOL/L (3.5-5.3); SODIUM, SERUM 134 MMOL/L (135-148)
[2016-11-28 14:52] LABS: BUN (BLOOD UREA NITROGEN) 49 MG/DL (6-23)
[2016-11-29 03:51] LABS: BASOPHILS 0 %; EOSINOPHILS 0.1 %; EOSINOPHILS ABSOLUTE 0.01 10/3/uL (0.0-0.53); HEMATOCRIT 26.2 % (40.0-51.0); HEMOGLOBIN 8.6 g/dL (13.6-17.8); IMMATURE GRANULOCYTES 0.6 %; IMMATURE GRANULOCYTES ABSOLUTE 0.08 10/3/uL (0.0-0.11); LYMPHOCYTES 7.7 %; MANUAL DIFF NO %; MEAN CORPUS HGB CONC 32.8 g/dL (32.0-36.0); MEAN CORPUSCULAR HEMOGLOB 22.3 pg (26.0-34.0); MEAN CORPUSCULAR VOLUME 68.1 fL (80-100); MONOCYTES 1.3 %; MONOCYTES ABSOLUTE 0.17 10/3/uL (0.21-1.20); NEUTROPHILS 90.3 %; NEUTROPHILS ABSOLUTE 11.79 10/3/uL (2.02-8.40); PLATELET COUNT 343 10/3/uL (150-400); RBC DISTRIBUTION WIDTH 15.8 % (12.0-16.0); RED CELL COUNT 3.85 10/6/uL (4.7-6.1); WHITE BLOOD CELLS 13.1 10/3/uL (4.5-10.5)
[2016-11-29 03:57] LABS: INTERNATIONAL NORMAL RATI 1.9 UNITS (-)
[2016-11-29 03:58] LABS: PARTIAL THROMBO TIME 103.4 SEC (22.5-37.2)
[2016-11-29 03:59] LABS: PROTIME (NOT ORD) 21.4 SEC (12.0-14.5)
[2016-11-29 04:13] LABS: ALBUMIN 3.2 G/DL (3.5-5.0); ALKALINE PHOSPHATASE 131 U/L (45-117); CALCIUM, SERUM 8.3 MG/DL (8.5-10.4); CHLORIDE, SERUM 96 MMOL/L (96-112); CO2 (CARBON DIOXIDE) 23 MMOL/L (24-34); GLOBULIN 3.3 G/DL (2.5-4.1); POTASSIUM, SERUM 4.2 MMOL/L (3.5-5.3); SGOT(AST) 1414 U/L (5-40); SGPT(ALT) 1303 U/L (5-65); SODIUM, SERUM 133 MMOL/L (135-148); TOTAL BILIRUBIN 0.6 MG/DL (0-1.2); TOTAL PROTEIN 6.5 G/DL (6.0-8.5)
[2016-11-29 04:14] LABS: BUN (BLOOD UREA NITROGEN) 61 MG/DL (6-23); CREATININE 3.32 MG/DL (0.70-1.30); GFR AFRICAN AMERICAN 22 ML/MIN (>=60); GFR NON AFRICAN AMERICAN 19 ML/MIN (>=60); GLUCOSE, SERUM 160 MG/DL (60-99); PHOSPHORUS, SERUM 6.7 MG/DL (2.5-4.5); TROPONIN I 0.08 NG/ML (<0.05)
[2016-11-29 04:47] LABS: PLATELET ESTIMATE ADQ (ADEQUATE)
[2016-11-29 17:23] LABS: CALCIUM, SERUM 7.8 MG/DL (8.5-10.4); CHLORIDE, SERUM 92 MMOL/L (96-112); CO2 (CARBON DIOXIDE) 23 MMOL/L (24-34); CREATININE 3.03 MG/DL (0.70-1.30); GFR AFRICAN AMERICAN 25 ML/MIN (>=60); GFR NON AFRICAN AMERICAN 22 ML/MIN (>=60); GLUCOSE, SERUM 153 MG/DL (60-99); POTASSIUM, SERUM 3.6 MMOL/L (3.5-5.3); SODIUM, SERUM 131 MMOL/L (135-148)
[2016-11-29 17:25] LABS: BUN (BLOOD UREA NITROGEN) 71 MG/DL (6-23)
== END 2016-11-30 04:00 | disposition left against medical advice (07) | DRG 291 ==
LOC: ER 19:52 → CDU1 22:45 → CDU2 11-28 00:10 → CCU 11-28 08:46
PROVIDERS: Emergency Medicine; Internal Medicine; Internal Medicine Cardiovascular Disease; Internal Medicine Nephrology
PROC: 05HM33Z Insertion of Infusion Device into Right Internal Jugular Vein, Percutaneous Approach (ICD-10-PCS; principal; 2016-11-28)
PROC: 30233N1 Transfusion of Nonautologous Red Blood Cells into Peripheral Vein, Percutaneous Approach (ICD-10-PCS; 2016-11-28)
DX: I13.0 Hypertensive heart and chronic kidney disease with heart failure and stage 1 through stage 4 chronic kidney disease, or unspecified chronic kidney disease (principal); N17.0 Acute kidney failure with tubular necrosis; K72.00 Acute and subacute hepatic failure without coma; R57.0 Cardiogenic shock; I48.0 Paroxysmal atrial fibrillation; F17.210 Nicotine dependence, cigarettes, uncomplicated; D50.9 Iron deficiency anemia, unspecified; I50.23 Acute on chronic systolic (congestive) heart failure; J44.9 Chronic obstructive pulmonary disease, unspecified; N18.3 Chronic kidney disease, stage 3 (moderate); I71.4 Abdominal aortic aneurysm, without rupture; I73.9 Peripheral vascular disease, unspecified; I25.5 Ischemic cardiomyopathy; N40.1 Benign prostatic hyperplasia with lower urinary tract symptoms; E78.00 Pure hypercholesterolemia, unspecified; E78.5 Hyperlipidemia, unspecified; E87.6 Hypokalemia; G47.00 Insomnia, unspecified; I99.8 Other disorder of circulatory system; Z91.14 Patient's other noncompliance with medication regimen; Z98.890 Other specified postprocedural states; Z82.49 Family history of ischemic heart disease and other diseases of the circulatory system; Z88.5 Allergy status to narcotic agent; Z95.810 Presence of automatic (implantable) cardiac defibrillator
CPT/HCPCS: 36415; 36569; 70450; 71010; 71250; 74150; 76376; 76705; 80048; 80053; 80069; 80076; 82140; 82533; 82728; 82805; 82962; 83540; 83550; 83605; 83735; 83880; 84100; 84145; 84484; 85025; 85045; 85610; 85730; 86850; 86900; 86901; 86920; 87641; 92950; 93005; 93308; 96374; 96375; 99285; A9270-GY; C1751; J0610; J1170; J1720; J2405; J2550; J2930; P9016; P9045